=== PATIENT | male | born 1960 | race Caucasian/White ===

== ENCOUNTER → 2021-05-21 11:34 | Outpatient (CLI) | payer OTHER, SELFPAY ==
--- NOTE | 2021-05-21 11:35 | DI.CT.S_ITS ---
PROCEDURE: CT ABDOMEN PELVIS WO CON INDICATIONS: Renal calculi. Gross hematuria TECHNIQUE: Axial sections were acquired from the lung bases to the pubic symphysis. Coronal and sagittal reformats were performed. For radiation dose reduction, the following was used: automated exposure control, adjustment of mA and/or kV according to patient size. COMPARISON: [facility], RG, CT IVP, 04/05/2021, 10:26. FINDINGS: Image quality: Excellent. Lung bases: Unremarkable. Heart: No significant findings. URINARY: Right Kidney: Moderate right hydronephrosis. Faint, nonobstructing, punctate calcifications in the right intrarenal lower pole. Right Ureter: 0.8 x 1.1 cm obstructing stone in the proximal ureter. Distally, the ureter is normal caliber. Left Kidney: Mild left hydronephrosis. No intrarenal calcifications. Left Ureter: Mild left hydroureter to the level of the bladder. At the UVJ within the urinary bladder, there is a 4 mm calcification Bladder: Normal wall thickness. No other stones. ABDOMEN: Liver: No masses Gallbladder: Normal wall thickness. Biliary ducts: Nondilated. Pancreas: Normal. Spleen: Normal size. Adrenal Glands: No nodules. Stomach and Bowel: Descending and sigmoid colon diverticulosis. Stomach, small bowel loops, and colon are otherwise unremarkable. Normal appendix. Peritoneum: No abnormal intraperitoneal fluid. No free air. Ventral Wall: No hernia. Abdominal Nodes: No enlarged retroperitoneal or mesenteric lymph nodes. Vessels: Aorta and inferior vena cava are normal in size. PELVIS: Pelvic Organs: Unremarkable. Pelvic Nodes: Unremarkable. Miscellaneous: No inguinal hernias are seen. Bones: T11-12 disc height loss.. Otherwise normal. IMPRESSION: 1. 1.1 cm right proximal ureteral calcification causing moderate right hydronephrosis. 2. 4 mm left distal UVJ stone causing mild left hydroureteronephrosis. 3. Both stones have migrated distally since the prior study. Dictated by: Cynthia Davey M.D. on 05/21/2021 at 12:55 Approved by: Cynthia Davey M.D. on 05/21/2021 at 13:06
== END ==
PROVIDERS: PCP Registered Nurse; Referring Provider Urology; Visit Provider Urology
DX: N13.2 Hydronephrosis with renal and ureteral calculous obstruction (principal); R31.21 Asymptomatic microscopic hematuria; K57.30 Diverticulosis of large intestine without perforation or abscess without bleeding; R82.998 Other abnormal findings in urine; Z87.442 Personal history of urinary calculi
CPT/HCPCS: 52000; 74176; 81002

== ENCOUNTER → 2021-06-25 10:45 | Outpatient (CLI) | payer OTHER, SELFPAY ==
--- NOTE | 2021-06-25 | DI.RAD.S_ITS ---
PROCEDURE: XR KUB INDICATIONS: KUB TECHNIQUE: One view of the abdomen acquired. COMPARISON: [facility], , XR ABDOMEN 1V, 05/26/2021, 18:24. FINDINGS: Unchanged approximately 7 mm calculus projecting over the right UPJ or proximal ureteral region. Large volume of formed stool throughout the colon. IMPRESSION: Unchanged position of approximately 7 mm calculus projecting over the region of the right UPJ or proximal right ureter. Dictated by: Ciaran Rubio M.D. on 06/25/2021 at 11:36 Approved by: Ciaran Rubio M.D. on 06/25/2021 at 11:37
== END ==
PROVIDERS: PCP Registered Nurse; Referring Provider Urology; Visit Provider Urology
DX: N20.1 Calculus of ureter (principal); R31.0 Gross hematuria; R82.998 Other abnormal findings in urine
CPT/HCPCS: 74018; 81002

== ENCOUNTER → 2021-07-15 15:09 | Outpatient (CLI) | payer OTHER, SELFPAY ==
[2021-07-15 17:56] LABS: COVID19 -Nasal RAPID Negative (Negative)
== END ==
PROVIDERS: PCP Registered Nurse; Visit Provider Specialist
DX: Z20.822 Contact with and (suspected) exposure to COVID-19 (principal)
CPT/HCPCS: 87635; C9803

== ENCOUNTER → 2021-07-18 08:16 | Day surgery (SDC) | payer OTHER, SELFPAY ==
[2021-07-15 10:21] VITALS: BMI 24.3
[2021-07-18 08:45] VITALS: BP 131/78; PULSE 76; RESP 16; TEMP 36.3; O2SAT 98; BMI 24.3
[2021-07-18] MEDS: LACTATED RINGERS 1,000 ML 42 ML IV (08:50)
--- NOTE | 2021-07-18 09:15 | PM.PREOP ---
Pre-operative Note COVID-19 COVID-19 status: Negative Result date/Date tested (Pos, Neg/Pending): 07/15/21 Criteria for continued procedure: Deterioration of the patient's condition or overall health and Non-surgical alternatives not available or appropriate per current SOC Interval Note History & Physical reviewed/Exam performed by Physician: Yes Changes to H&P: No
[2021-07-18] MEDS: CEFAZOLIN 2 GM/20 ML SYRINGE IV (09:35)
--- NOTE | 2021-07-18 10:43 | PM.OP.1 ---
Procedure & Clinicians Procedure: Cystoscopy with right stent placement and right extracorporeal shockwave lithotripsy Same procedure as scheduled: Yes Indications: This is a very pleasant 61-year-old male who was found to have a right-sided stone. This is progressed somewhat down his ureter he presents this time for right extracorporeal shockwave lithotripsy and right ureteral stent placement. Surgeon: Fernando Leger Click Yes if Unassisted: Yes Anesthesia Type: General Operative Notes Findings: At cystoscopy urethra normal to the prostatic fossa which shows minimal verging on marked obstructive character. Mucosa was normal bladder exhibits moderate to severe trabeculation and a few cellules. Right left ureteral orifice in normal position with clear efflux. The 7 Marshallese multi length stent is left in good position in the right collecting system without a string. The stone was noted to be in the middle 3rd of the ureter at this time. The stone received 2000 shock waves from level 7 to level 8.5 and appeared to fragment. But being in the ureter definitive comment cannot be made. There were no other abnormalities noted. Closure Type: not applicable Specimen(s): none sent Estimated Blood Loss (mL): 0 Procedure in detail: After informed consent was obtained, the patient was identified, and brought to the operating room. He was then placed in the supine position on the Lithotripter where anesthesia was induced and maintained. After ensuring an adequate level of anesthesia the patient was transition to a lithotomy position. The patient was then prepped, draped and prepared in a sterile fashion for transurethral procedure. After prepping draping in his urine adequate level of anesthesia the 21 Marshallese cystoscope was passed through the urethra, prostate and into the bladder. Cystoscopy was then performed with findings as noted. The right ureteral orifice was a dense then identified and a guidewire passed up and into the collecting system under fluoroscopic visualization. The stent was then passed in a coaxial fashion over the wire position in the renal pelvis under fluoroscopic visualization, and in the bladder under direct vision. Grasping forceps was then inserted the stent was grasped with a nylon harness was removed. A stent was left in good position. The bladder was drained and the scope was removed. The patient was then transitioned back to the supine position and the stone targeted via the imaging system on the Lithotripter. With the stone appropriately targeted as shock waves were delivered at level 7 to level 8.5 for a total 2000 shocks. At 2000 shocks the shock wave head was rotated out and the stone appeared fragmented. Patient was then awakened and transferred to the postanesthesia care unit having tolerated the procedure well. Patient will be discharged to home to follow up my office in approximately 10-14 days. The patient will strain his urine and save any fragments to his follow-up appointment. Complications: none Post-operative Condition: stable Disposition: PACU Plan for aftercare: Discharge to home to follow-up in my office 10-14 days with [facility].
[2021-07-18 10:46] VITALS: BP 123/75; PULSE 83; RESP 12; TEMP 36.1; O2SAT 98
[2021-07-18 10:51] VITALS: BP 110/71; PULSE 61; RESP 12; O2SAT 98
--- NOTE | 2021-07-18 10:58 | SUR.PHASEI ---
Received to PACU after general anesthesia. Airway patent, self maintained. Report from BEAN Henao and Dr Pool. Temp 96.9. Nyla chino applied. Temp recheck at 1101= 97.7. Nyla chino removed.
[2021-07-18 11:00] VITALS: BP 118/73; PULSE 69; RESP 12; TEMP 36.5; O2SAT 98
[2021-07-18 11:02] VITALS: BP 123/75; PULSE 70; RESP 16; TEMP 36.5; O2SAT 97
[2021-07-18 11:45] VITALS: BP 125/75; PULSE 63; RESP 16; TEMP 36.7; O2SAT 98
--- NOTE | 2021-07-18 12:28 | SUR.PHASEII ---
Ambulated pt to BR, steady on feet, voided bloody urine, no clots, strained, no stones, denied pain, pt ready to go, called, pt left unit in stable condition. d/c instructions discussed with pt and , both voiced an understanding.
== END | disposition home or self-care (01) ==
PROVIDERS: PCP Registered Nurse; Referring Provider Urology; Visit Provider Urology
PROC: (CPT 50590; principal; 2021-07-18 09:15)
DX: N20.1 Calculus of ureter (principal)
CPT/HCPCS: 50590; 52332; J0690; J1100; J1885; J2250; J2704; J3010

== ENCOUNTER → 2021-08-12 | Outpatient (CLI) | payer OTHER, SELFPAY ==
[2021-08-12 10:49] LABS: Appearance Urine UA CLEAR; Bilirubin Urine UA NEGATIVE (NEGATIVE); Color Urine UA YELLOW; Glucose Urine UA NEGATIVE (Negative); Ketones Urine UA NEGATIVE (NEGATIVE); Leukocyte Esterase Urine UA 1+ (NEGATIVE); Nitrite Urine UA NEGATIVE (Negative); Occult Blood Urine UA 3+ (Negative); Protein Urine UA 2+ (Negative); Urobilinogen Urine UA 0.2 E.U./dL (0.2); pH Urine UA 7.5 (4.5-8.0)
[2021-08-12 10:58] LABS: Bacteria Urine None Seen; RBC Urine >100/HPF (0-5/HPF); Squamous Epithelial Cell Urine 1-5 /HPF (0-5/HPF); WBC Urine 1-5/HPF (0-5/HPF)
[2021-08-12 10:59] LABS: Culture Indicated Urine Specimen Cultured
[2021-08-16 13:10] LABS: Ca oxalate dihydrate 100 % (.); Size 6x4 mm (.)
== END ==
PROVIDERS: PCP Registered Nurse; Visit Provider Urology
DX: N20.0 Calculus of kidney (principal); R30.0 Dysuria
CPT/HCPCS: 81001; 82365; 87086